=== PATIENT | female | born 1940 | race Caucasian/White ===

== ENCOUNTER 2016-07-09 14:47 | Inpatient (IN) | payer OTHER ==
[~2016-07-09] VITALS: Ht 152.4 cm; Wt 67.1 kg
[~2016-07-09 14:47] MED LIST: ATORVASTATIN CA40 M1 PO; AZITHROMYCIN500 M3 PO; CALCIUM600 M2 PO; HUMALOG KW100 UNIT/1; HYDROCODON-ACE1 EAC2 PO; IPRAT-ALBUT 0.5-3 ML PO; LANTUS SOL100 UNIT/1 SC; LISINOPRIL20 M1 PO; LYRICA75 M1 PO; METFORMIN HCL1000 M1 PO; METFORMIN HCL500 M3 PO; ONGLYZA5 M1 PO; PREDNISONE10 M2 PO; SUPER CALCIUM600 MG PO; VENLAFAXINE H37.5 M3 PO; VOLTAREN100 GM TOP
--- NOTE | 2016-07-09 15:16 | ED PSYCHIATRIC COMPLAINT ---
History of Present Illness General Chief Complaint: Psychiatric Related Complaint Stated Complaint: +SI Source: patient Exam Limitations: no limitations Vital Signs & Intake/Output Vital Signs & Intake/Output Vital Signs Date Time Temp Pulse Resp B/P Pulse O2 O2 Flow FiO2 Ox Delivery Rate 07/16 812 96.4 100 139/76 07/16 0804 97.1 78 18 126/51 07/15 1951 97.1 78 126/51 07/15 1633 76 135/53 07/15 1220 76 136/44 Allergies Coded Allergies: aspirin (HX OF HEMORRAGE 12/25/15) Reconcile Medications Albuterol Sulfate (Proair Hfa) 90 MCG HFA.AER.AD 2 PUF INH 4 TIMES/DAY RESPIRATORY (Reported) Atorvastatin Calcium (Unknown Strength) TABLET (Unknown Dose) PO DAILY CHOLESTEROL (Reported) Calcium Carbonate/Vitamin D3 (Caltrate 600 + D Tablet) (Unknown Strength) TABLET (Unknown Dose) PO DAILY SUPPLEMENT (Reported) Diclofenac Sodium (Voltaren) 100 GM GEL..GRAM. 1 GM TOP 4 TIMES/DAY AFFECTED AREA (Reported) apply to affected area(s) Hydrocodone/Acetaminophen (Hydrocodon-Acetaminophen 5-325) 1 EACH TABLET 1 TAB PO BID PAIN (Reported) Insulin Lispro (Humalog Kwikpen U-100) 100 UNIT/ML INSULN.PEN DM (Reported) Insulin-Lantus (Lantus) 100 UNIT/ML VIAL 50 UNITS SC QAM DM (Reported) Insulin-Lantus (Lantus) 100 UNIT/ML VIAL 65 UNITS SC QPM DM (Reported) Lisinopril 20 MG TABLET 1 TAB PO DAILY HEART (Reported) Metformin HCl (Glucophage) 1,000 MG TABLET 1,000 MG PO BID DIABETES (Reported ) Pregabalin (Lyrica) 100 MG CAPSULE 1 CAP PO BID UNKNOWN (Reported) Saxagliptin (Onglyza) 5 MG TABLET 1 TAB PO DAILY DIABETES (Reported) Tiotropium [place] (Spiriva) 18 MCG CAP.W.DEV 1 CAP INH DAILY RESPIRATORY ( Reported) Venlafaxine HCl 37.5 MG TABLET 1 TAB PO BID MENTAL HEALTH (Reported) Triage Note: PT BIBA FROM HOME AFTER HER DAUGHTER CALLED 911 DUE TO POSSIBLE SUCIDE ATTEMPT. PT LEFT A NOTE STATING "I HAVE A BROKEN HEART, I'M GOING TO LEAVE WITH IT" PT TOLD MULTIPLE NEIGHBORS THAT SHE TRIED TO HANG HERSELF WITH HER SHOWER CURTAIN, BUT IT BROKE. NEIGHBORS TOLD DAUGHTER ABOUT INCIDENT. EMS STATES DAUGHTER AND PT DO NOT HAVE A STRONG RELATIONSHIP. PT HAS A HX OF DM AND HAS NOT BEEN TAKING CARE OF HERSELF, BS ON [address]. PT IS ALERT AND ORIENTED, SLOW TO GIVE ANY INFO, STATING SHE DOES NOT WANT TO BE HERE. POLICE STATE THEY SAW A BROKEN SHOWER CURTAIN. PT HAS MODERATE HAND TREMORS, PT WILL NOT CONFIRM IF THAT IS AT HER BASELINE. Triage Nurses Notes Reviewed? yes HPI: This patient is a 76-year-old female who presented to the emergency department today brought in by ambulance for evaluation of suicide attempt. PER EMS, the patient's daughter called 911 after the patient left a suicide note. The patient reported that this morning she tried to hang herself from the shower curtain, but reported, "I guess I was too heavy and it broke." The patient reported that she has been feeling very down because her daughter has not talked to her since before . She reported, "I was alone on [place] and felt like I just didn't have anything to live for anymore." The patient denied any previous suicidal ideations or suicide attempts. She denied any alcohol or drug use. The patient denied any homicidal ideation, audio hallucinations, or visual hallucinations. She denied any fevers, chills, chest pain, difficulty breathing, abdominal pain, numbness or tingling, nausea, vomiting, visual changes, or any other associated symptoms. (RENEE CRAIG PA-C) Past History Travel History Traveled to [place] past 21 day No Medical History Any Pertinent Medical History? see below for history Neurological: NONE EENT: NONE Cardiovascular: hypertension, hyperlipidemia Respiratory: COPD Gastrointestinal: NONE Hepatic: NONE Renal: NONE Musculoskeletal: NONE Psychiatric: NONE Endocrine: diabetes Blood Disorders: NONE Cancer(s): NONE Pneumonia Vaccine: 04/22/14 Surgical History Surgical History: brain aneursm Psychosocial History Who do you live with Son Services at Home None What is your primary language [place]ese Family History Family History, If Any: Relation not specified for: *No pertinent family history Hx Contributory? No (RENEE CRAIG PA-C) Review of Systems Review of Systems Constitutional: Reports: no symptoms. EENTM: Reports: no symptoms. Respiratory: Reports: no symptoms. Cardiovascular: Reports: no symptoms. GI: Reports: no symptoms. Genitourinary: Reports: no symptoms. Musculoskeletal: Reports: no symptoms. Skin: Reports: no symptoms. Neurological/Psychological: Reports: see HPI. All Other Systems: Reviewed and Negative (RENEE CRAIG PA-C) Physical Exam Physical Exam General Appearance: well developed/nourished, alert, awake Neurological/Psychiatric: no motor/sensory deficits, awake, alert, calm, nurse administrator II- XII nml as tested, depressed affect, oriented x 3 Comments: Well-developed well-nourished person in no acute distress HEENT: Normal EENT exam, head normocephalic, moist mucous membranes PERRLA bilaterally Back: Normal gait Cardiovascular: Regular rate and rhythm with no murmurs, rubs, or gallops Respiratory: No respiratory distress. Breath sounds clear to auscultation bilaterally Abdomen: Soft, nontender and nondistended Extremity: Normal and equal pulses. Neuro: Alert oriented x3, cranial nerves II through XII grossly intact. Skin: No appreciable rash on exposed skin, skin is warm and dry. Psych: Mood and affect is depressed SAD PERSONS Done? yes (RENEE CRAIG PA-C) Progress Differential Diagnosis: dementia, drug intoxication, drug overdose, drug withdrawal, electrolyte abnormality, encephalitis, IC hem/mass/tumor, ALCOHOL INTOXICATION, ALCOHOL WITHDRAWAL, MAJOR DEPRESSIVE DISORDER, GENERALIZED ANXIETY DISORDER, BIPOLAR DISORDER Plan of Care: Current Medications Sig/Pavan Start time Last Medication Dose Stop Time Status Admin Acetaminophen 650 MG Q6P PRN 07/10 0245 AC (Tylenol) Albuterol Sulfate 2 PUF Q6P PRN 07/10 0130 AC (Ventolin) Comments: 07/09/2016 10:58:37 PM: PATIENT SIGNED OUT TO DR. RUIZ PENDING PSYCH CONSULT. (RENEE CRAIG PA-C) Departure Departure Disposition: STILL A PATIENT Condition: Stable Clinical Impression Primary Impression: Major depressive disorder Qualifiers: Major depression recurrence: single episode Active/Remission status : remission status unspecified Qualified Code: F32.9 - Major depressive disorder , single episode, unspecified Referrals: LILI BAILON,ROXY Neri (PCP/Family) Referred to [facility] as new patient No Departure Forms: Customer Survey General Discharge Information Psych Admission Note Psychiatric Admission: I have seen and evaluated REAL CROSS. I have also reviewed all the pertinent lab results and diagnostic results. REAL CROSS will be admitted to our inpatient Psychiatric unit for treatment and care. (RAFA RODGERS,RENEE) PA/FAMILY MEDICINE PHYSICIAN Co-Sign Statement Statement: ED Attending supervision documentation- x I saw and evaluated the patient. I have also reviewed all the pertinent lab results and diagnostic results. I agree with the findings and the plan of care as documented in the PA's/FAMILY MEDICINE PHYSICIAN's documentation. [] I have reviewed the ED Record and agree with the PA's/FAMILY MEDICINE PHYSICIAN's documentation. [] Additions or exceptions (if any) to the PAs/FAMILY MEDICINE PHYSICIAN's note and plan are summarized below: [] (JOSEPH BAILON,DL) (Tylenol) Albuterol Sulfate 2 PUF Q6P PRN 07/10 0130 AC (Ventolin) Comments: 07/09/2016 10:58:37 PM: PATIENT SIGNED OUT TO DR. RUIZ PENDING PSYCH CONSULT. Departure Departure Disposition: STILL A PATIENT Condition: Stable Clinical Impression Primary Impression: Major depressive disorder Qualifiers: Major depression recurrence: single episode Active/Remission status : remission status unspecified Qualified Code: F32.9 - Major depressive disorder , single episode, unspecified Referrals: ROXY PEARSON MD (PCP/Family) Referred to [facility] as new patient No Departure Forms: Customer Survey General Discharge Information Psych Admission Note Psychiatric Admission: I have seen and evaluated REAL CROSS. I have also reviewed all the pertinent lab results and diagnostic results. REAL CROSS will be admitted to our inpatient Psychiatric unit for treatment and care. Departure Departure Condition: Stable Referrals: ROXY PEARSON MD (PCP/Family) Departure Forms: Customer Survey General Discharge Information
[2016-07-09 16:08] LABS: ABSOLUTE BASOPHIL COUNT 0.2 /CUMM (0.0-0.2); ABSOLUTE EOSINOPHIL COUNT 0.1 /CUMM (0.0-0.7); ABSOLUTE LYMPH COUNT 2.2 /CUMM (1.2-3.4); ABSOLUTE MONOCYTE COUNT 0.5 /CUMM (0.10-0.60); BASOPHIL % 1.7 % (0.0-2.0); EOSINOPHIL % 0.8 % (0-5); HEMATOCRIT 40.9 % (37-47); MEAN CORPUSCULAR HGB 31.3 PG (27.0-31.0); MEAN CORPUSCULAR HGB CONC 34.1 G/DL (33.0-37.0); MEAN CORPUSCULAR VOLUME 91.7 FL (81.0-99.0); MEAN PLATELET VOLUME 7.3 FL (7.4-10.4); PLATELET COUNT 239 /CUMM (130-400); RBC DISTRIBUTION WIDTH 13.9 % (11.5-14.5); RED BLOOD CELL CT 4.46 /CUMM (4.20-5.40)
[2016-07-09] MEDS ORDERED: LANTUS100 UNIT/1 SC ×2 (17:42→17:43)
[2016-07-09] MEDS ORDERED: HUMALOG KW100 UNIT/1 SC (17:48)
[2016-07-09] MEDS ORDERED: CALTRATE 600 +1 EACH PO (17:51)
[2016-07-09] MEDS ORDERED: PROAIR HFA8.5 GM INH (17:54)
[2016-07-09] MEDS ORDERED: SPIRIVA18 MCG INH (17:55)
[2016-07-09] MEDS ORDERED: LYRICA100 M1 PO (17:57)
--- NOTE | 2016-07-09 21:27 | ED PSY CRISIS COLLATERAL NOTE ---
Collateral Note Collateral Note Family/Inform/Danielle Contacts: This clinician spoke with daughter Suzanne Davalos who reported no contact with her mother since October of 2015. She reports receiving a call from a worker at her mother building who reported her mother attempted suicide by trying to hang herself from bathroom shower curtain. She called 911 and mother [id number].
--- NOTE | 2016-07-09 22:02 | ED PSYCH CRISIS CONSULTATION ---
Crisis Consult Basic Assessment Date of Consult: 07/09/16 Responsible Person/Accompanied By: self Insurance Authorization: Insurance #1: Insurance name: MED[employer] HMO Phone number: Policy number: [id number] Group number: [id number] Authorization number: ED Provider: Patient's ED Provider: RENEE CRAIG PA-C Primary Care Physician: Patient's PCP: LILI BAILON,ROXY Neri PCP's Phone Number: Current Psychiatrist: Dr. Yuri Rutherford Chief Complaint: Psychiatric Related Complaint Patient's Quote: " I want to go home" Present Illness: Pt is a 76 year old female BIBA after a worker in her senior housing visted her in found she attempted suicide by trying to hang herself in the bathroom shower curtain. Pt wrote a suicide note in the bathroom. She reports getting depressed because her daaughter has not called since October of 2015 and having no place to spend Xmas. She reports having (2) sons currently homeless and her son borrowed had her car in the summer and would not pick her up from the hospital. Pt reports asking her son to leave and appears to have limited support with loss of relationship with her (2) sons and (1) daughter. She reports getting depressed after calling her daughter numerous times with no return call from daughter. Pt denies any substance use and reports being treated in the past for depression after the loss of her with Zoloft. Patient's Address: [address] [place] [address] Other Phone Number: Who Do You Live With? Patient/Self Family/Informants Interviewed: Mary Davalos [phone] Allergies - Coded Allergies: aspirin (HX OF HEMORRAGE 12/25/15) Current Medications - Scheduled Medications Albuterol Sulfate (Proair Hfa) 90 MCG HFA.AER.AD 2 PUF INH 4 TIMES/DAY RESPIRATORY (Reported) Entered as Reported by LUCINDA HELTON on 07/09/16 1754 Atorvastatin Calcium (Unknown Strength) TABLET (Unknown Dose) PO DAILY CHOLESTEROL #30 (Reported) Entered as Reported by NGUYEN ALEMAN on 12/25/15 1452 Last Taken: Unknown Dose Calcium Carbonate/Vitamin D3 (Caltrate 600 + D Tablet) (Unknown Strength) TABLET (Unknown Dose) PO DAILY SUPPLEMENT (Reported) Entered as Reported by LUCINDA HELTON on 07/09/16 175 Diclofenac Sodium (Voltaren) 100 GM GEL..GRAM. 1 GM TOP 4 TIMES/DAY AFFECTED AREA #400 (Reported) Entered as Reported by NGUYEN ALEMAN on 12/25/15 1454 Hydrocodone/Acetaminophen (Hydrocodon-Acetaminophen 5-325) 1 EACH TABLET 1 TAB PO BID PAIN (Reported) Entered as Reported by NGUYEN ALEMAN on 12/25/15 145 Insulin-Lantus (Lantus) 100 UNIT/ML VIAL 50 UNITS SC QAM DM (Reported) Entered as Reported by LUCINDA HELTON on 07/09/16 174 Insulin-Lantus (Lantus) 100 UNIT/ML VIAL 65 UNITS SC QPM DM (Reported) Entered as Reported by LUCINDA HELTON on 07/09/16 174 Lisinopril 20 MG TABLET 1 TAB PO DAILY HEART #30 (Reported) Entered as Reported by NGUYEN ALEMAN on 12/25/15 1451 Metformin HCl 1,000 MG TABLET 1 TAB PO BID diabetes mellitus 30 Days Prescribed by VIET DENNY on 12/29/15 Pregabalin (Lyrica) 100 MG CAPSULE 1 CAP PO BID UNKNOWN #180 (Reported) Entered as Reported by LUCINDA HELTON on 07/09/16 175 Saxagliptin (Onglyza) 5 MG TABLET 1 TAB PO DAILY DIABETES #30 (Reported) Entered as Reported by NGUYEN ALEMAN on 12/25/15 1450 Tiotropium [place] (Spiriva) 18 MCG CAP.W.DEV 1 CAP INH DAILY RESPIRATORY ( Reported) Entered as Reported by LUCINDA HELTON on 07/09/16 175 Venlafaxine HCl 37.5 MG TABLET 1 TAB PO BID MENTAL HEALTH #60 (Reported) Entered as Reported by NGUYEN ALEMAN on 12/25/15 145 Miscellaneous Medications Insulin Lispro (Humalog Kwikpen U-100) 100 UNIT/ML INSULN.PEN DM (Reported) Entered as Reported by LUCINDA HELTON on 07/09/16 174 Laboratory Results: Laboratory Tests 07/09/16 1556: Anion Gap 10, Estimated GFR > 60, BUN/Creatinine Ratio 23.3, Glucose 324 H, Calcium 8.9, Total Bilirubin 0.3, AST 17, ALT 25, Alkaline Phosphatase 88, Total Protein 6.1 L, Albumin 3.5, Globulin 2.6, Albumin/Globulin Ratio 1.3, CBC w Diff NO MAN DIFF REQ, RBC 4.46, MCV 91.7, MCH 31.3 H, RDW 13.9, MPV 7.3 L, Gran % 70.0, Lymphocytes % 22.1, Monocytes % 5.4, Eosinophils % 0.8, Basophils % 1.7, Absolute Granulocytes 7.0 H, Absolute Lymphocytes 2.2, Absolute Monocytes 0.5, Absolute Eosinophils 0.1, Absolute Basophils 0.2, PUBS MCHC 34.1, Serum Alcohol < 10.0, Acetone Level NEGATIVE 07/09/16 1537: Urine Opiates Screen < 100.00, Methadone Screen < 40, Barbiturate Screen < 60, Ur Phencyclidine Scrn < 6.00, Amphetamines Screen < 100, U Benzodiazepines Scrn < 85, Urine Cocaine Screen < 50, Urine Cannabis Screen < 5.00 07/09/16 1516: Acetone Level Cancelled Past History Past Medical History Neurological: NONE EENT: NONE Cardiovascular: hypertension, hyperlipidemia Respiratory: COPD Gastrointestinal: NONE Hepatic: NONE Renal: NONE Musculoskeletal: NONE Psychiatric: NONE, depression Endocrine: diabetes Blood Disorders: NONE Cancer(s): NONE Past Surgical History Surgical History: brain aneursm Psychosocial History Strengths/Capabilities: Supportive friend. Psychiatric Treatment History Psych Treatment Psychiatric Treatment Yes Inpatient Treatment No Outpatient Treatment Yes Location of Treatment Primary Care physician after the loss of . Reason for Treatment Depression Dates of Treatment unknown Response to Treatment unknown Diagnosis by History: unknown Substance Use/Abuse History Drug Use/Abuse Substances Used/Abused No Substance Abuse Treatment Substance Abuse Treatment Past Substance Abuse [place] No Outpatient Treatment No Comments: Pt has a histordy of depression. Current Mental Status Mental Status Orientation: Person, Place, Situation Affect: Depressed Speech: WNL Neuro-vegetative: Appetite Decreased Appearance Appearance- Dress/Hygiene: Dressed in hospital clothing. Behaviors Thought Process: WNL Thought Content: WNL Memory: WNL Insight: Poor SI/HI Risk Assessment Past Suicidal Ideation/Attempts Yes Current Suicidal Ideation/Att Yes Past Homicidal Ideation/Att: No Current Homicidal Ideation/Attempts No Degree of Intent: Made Preparations, Plan, States Intent Danger To: Self Gravely Disabled: Lack of Insight, Poor Impulse Control, Poor Judgment Risk Factors: age (under 24/over 65), isolate/no social support, poor impulse control, lives alone, limited support Lethality Ratin PTSD Checklist PTSD Score: PTSD Score: Response Value Disturbing memories,thoughts,images of stressful experience? Not at all 1 Disturbing dreams of stressful experience from past? Not at all 1 Suddenly acting/feeling as if reliving stressful experience? Not at all 1 Total 3 PTSD Done? 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 Hx of Depression. Departure Disposition Psych Medical Clearance Date: 07/09/16 Medically Cleared at: 2029 Time Started: 2029 Time Ended: 2129 Psychiatrist Consulted: Dr. Yuri Rutherford Date Disposition Established: 07/09/16 Time Disposition Established: 2129 Plan for Disposition - Modality: Inpatient Psychiatry Facility: [facility] Follow-up Appt Date: 07/09/16 Contact: MILTON Lopez Rationale for Disposition: Pt presnets to the ER BIBA after attempted suicide by trying to hang herself in the bathroom broke the shower curtain, depressed and hopeless. Type of IP Admission: PEC Referrals LILI BAILON,ROXY Neri (PCP/Family)
[2016-07-10 01:19] VITALS: BP 152/68
[2016-07-10] MEDS ORDERED: GLUCOPHAGE1000 M1 PO (07:34)
[2016-07-10 08:12] VITALS: BP 150/61
[2016-07-10 12:24] VITALS: BP 135/58
--- NOTE | 2016-07-10 13:06 | SOCIAL WORKER TX PLAN PSYCH ---
Treatment Plan - Please Document: - Evidence that there is ongoing collaboration between - the patient and the interdisciplinary team, - including the patient's active participation and - responsibility for engaging in the treatment regimen, - and that the treatment plan is individualized and - relevant to the patient's conditions. - Treatment plan should reflect documentation indicating - that all active therapeutic efforts are included. Strengths/Capabilities: Supportive friend. Patient Identified Trmt Goals: " To do better for myself." Discharge Plan: IOP Problem/Goals #1 Problem #1: suicidal ideation Goal (Short Term): Today I will attend 2 groups Today I will identify 2 stressors Today I will identify 2 positive supports Today I will work on recognizing 3 emotions I am feeling Goal (Usp): Be free of suicidal thoughts/attempts Develop 3 coping skills to deal with depression Identify 3 positive support systems to call in crisis Develop a crisis plan with 3 vela people Identify 2 positive traits per week about myself Identify 2 things I have to look forward to Identify 2 positive people in my life and 1 thing I appreciate about them Interventions: Learn ways to manage depressive symptoms accordingly and identify positive supports to manage life stressors and mood fluctuations. Modalities: Encourage groups, education on depression, provide CBT treatment, family meeting. 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
--- NOTE | 2016-07-10 13:06 | SOCIAL WORKER SOCIAL HX PSYCH ---
Social History Basic Assessment Primary Care Physician: Patient's PCP: ROXY PEARSON MD PCP's Phone Number: Present Problem: Pt is a 76 year old female BIBA after a worker in her senior housing visted her in found she attempted suicide by trying to hang herself in the bathroom shower curtain. Pt wrote a suicide note in the bathroom. She reports getting depressed because her daaughter has not called since October of 2015 and having no place to spend Xmas. She reports having (2) sons currently homeless and her son borrowed had her car in the summer and would not pick her up from the hospital. Pt reports asking her son to leave and appears to have limited support with loss of relationship with her (2) sons and (1) daughter. She reports getting depressed after calling her daughter numerous times with no return call from daughter. Pt denies any substance use and reports being treated in the past for depression after the loss of her with Zoloft. Primary Language? Tajik Living Situation Other Living Arrangement: [facility] Residential Care/Treatment Fac residential Feel Safe Where You Are Living Yes Feel Safe in Relationships? Yes Allergies - Coded Allergies: aspirin (HX OF HEMORRAGE 12/25/15) Current Medications - Scheduled Medications Albuterol Sulfate (Proair Hfa) 90 MCG HFA.AER.AD 2 PUF INH 4 TIMES/DAY RESPIRATORY (Reported) Entered as Reported by LUCINDA HELTON on 07/09/161753 Last Taken: 07/08/16 Atorvastatin Calcium (Unknown Strength) TABLET (Unknown Dose) PO DAILY CHOLESTEROL #30 (Reported) Entered as Reported by NGUYEN ALEMAN on 12/25/151451 Last Taken: 80MG on 07/08/16 Calcium Carbonate/Vitamin D3 (Caltrate 600 + D Tablet) (Unknown Strength) TABLET (Unknown Dose) PO DAILY SUPPLEMENT (Reported) Entered as Reported by LUCINDA HELTON on 07/09/161750 Last Taken: 07/08/16 Diclofenac Sodium (Voltaren) 100 GM GEL..GRAM. 1 GM TOP 4 TIMES/DAY AFFECTED AREA #400 (Reported) Entered as Reported by NGUYEN ALEMAN on 12/25/151453 Last Taken: 07/08/16 Hydrocodone/Acetaminophen (Hydrocodon-Acetaminophen 5-325) 1 EACH TABLET 1 TAB PO BID PAIN (Reported) Entered as Reported by NGUYEN ALEMAN on 12/25/15 145 Last Taken: 07/08/16 Insulin-Lantus (Lantus) 100 UNIT/ML VIAL 50 UNITS SC QAM DM (Reported) Entered as Reported by LUCINDA HELTON on 07/09/161741 Last Taken: 07/09/16 Insulin-Lantus (Lantus) 100 UNIT/ML VIAL 65 UNITS SC QPM DM (Reported) Entered as Reported by LUCINDA HELTON on 07/09/161742 Last Taken: 07/08/16 Lisinopril 20 MG TABLET 1 TAB PO DAILY HEART #30 (Reported) Entered as Reported by NGUYEN ALEMAN on 12/25/15 145 Last Taken: 07/08/16 Metformin HCl (Glucophage) 1,000 MG TABLET 1,000 MG PO BID DIABETES (Reported ) Entered as Reported by JAYLA HUMPHRIES on 07/10/16 0734 Pregabalin (Lyrica) 100 MG CAPSULE 1 CAP PO BID UNKNOWN #180 (Reported) Entered as Reported by LUCINDA HELTON on 07/09/161756 Last Taken: 07/08/16 Saxagliptin (Onglyza) 5 MG TABLET 1 TAB PO DAILY DIABETES #30 (Reported) Entered as Reported by NGUYEN ALEMAN on 12/25/15 1450 Tiotropium [place] (Spiriva) 18 MCG CAP.W.DEV 1 CAP INH DAILY RESPIRATORY ( Reported) Entered as Reported by LUCINDA HELTON on 07/09/161754 Last Taken: 07/08/16 Venlafaxine HCl 37.5 MG TABLET 1 TAB PO BID MENTAL HEALTH #60 (Reported) Entered as Reported by NGUYEN ALEMAN on 12/25/15 145 Miscellaneous Medications Insulin Lispro (Humalog Kwikpen U-100) 100 UNIT/ML INSULN.PEN DM (Reported) Entered as Reported by LUCINDA HELTON on 07/09/161747 Last Taken: 07/08/16 Past History Past Medical History Neurological: BRAIN ANERUSYM DISSECTED EENT: NONE Cardiovascular: hypertension, hyperlipidemia Respiratory: COPD Gastrointestinal: NONE Hepatic: NONE Renal: NONE Musculoskeletal: NONE Psychiatric: NONE, depression Endocrine: diabetes Blood Disorders: NONE Cancer(s): NONE Past Surgical History Surgical History: brain aneursm /Family History Place/Country of Origin: unable to answer Childhood Family Constellation: parents Primary Childhood Caretakers: father, mother Family Life During Childhood: unclear DCF Involvement? No Mother's Age (Current/): 0 Relationship w/Mother: Father's Age (Current/): 0 Relationship w/Father: Relationship w/Sibling(s): unknown Relationship w/Friends: Has some friends in her residence. Number of Pregnancies: 3 Number of Miscarriages: 0 Number of Abortions: 0 Abuse/Trauma History Trauma History/Current Trauma: Denies Legal History Current Legal Status: none Hx of Juvenile Legal Charges? No Hx of Adult Legal Charges? No Psychosocial History Primary Support System: None identified Strengths/Capabilities: Supportive friend. Weaknesses: Poor relationship with family members Last Physical: unknown History of Seizures? No History of Blackouts? No [place]/Social/Peer Relations Has some friends in building, tends to keep to herself. Psychiatric Treatment History Psych Treatment Inpatient Treatment No Outpatient Treatment Yes Location of Treatment Primary Care physician after the loss of . Reason for Treatment Depression Dates of Treatment unknown Response to Treatment unknown Diagnosis: unknown Risk Factors: age (under 24/over 65), isolate/no social support, poor impulse control, lives alone, limited support Substance Use/Abuse History Drug Use/Abuse Substance Used/Abused No History Substance Abuse Treatment Substance Abuse Treatment Outpatient Treatment No Education History Highest Level of Education: not sure Employment History Employment Retired History Have You Been in The ? No Current Mental Status Mental Status Orientation: Person, Place, Situation Affect: Depressed Speech: WNL Neuro-vegetative: Appetite Decreased Appearance Appearance- Dress/Hygiene: Dressed in hospital clothing. Behaviors Thought Process: WNL Thought Content: WNL Memory: WNL Insight: Poor SI/HI Risk Assessment Past Suicidal Ideation/Attempts Yes Current Suicidal Ideation/Att Yes Past Homicidal Ideation/Att: No Current Homicidal Ideation/Attempts No Degree of Intent: Made Preparations, Plan, States Intent Danger To: Self Gravely Disabled: Lack of Insight, Poor Impulse Control, Poor Judgment Lethality Ratin - Conclusion and Recommendations for treatment - and discharge planning
--- NOTE | 2016-07-10 14:33 | History & Physical ---
General Information and HPI MD Statement: I have seen and personally examined REAL CROSS and documented this H&P. The patient is a 76 year old F who presented with a patient stated chief complaint of "I have a broken heart" "I to go home". Source of Information: patient, family Exam Limitations: no limitations History of Present Illness: 76-year-old female that in by ambulance to the [facility] emergency room after attempting suicide by trying to hang self from the bathroom curtain that was too heavy and broke has been depressed hopeless with history of depression or depressed around the holidays [place] and all started after the loss of her and the lack of contact with her children Allergies/Medications Allergies: Coded Allergies: aspirin (HX OF HEMORRAGE 12/25/15) Home Med list Albuterol Sulfate (Proair Hfa) 90 MCG HFA.AER.AD 2 PUF INH 4 TIMES/DAY RESPIRATORY (Reported) Atorvastatin Calcium (Unknown Strength) TABLET (Unknown Dose) PO DAILY CHOLESTEROL (Reported) Calcium Carbonate/Vitamin D3 (Caltrate 600 + D Tablet) (Unknown Strength) TABLET (Unknown Dose) PO DAILY SUPPLEMENT (Reported) Diclofenac Sodium (Voltaren) 100 GM GEL..GRAM. 1 GM TOP 4 TIMES/DAY AFFECTED AREA (Reported) apply to affected area(s) Hydrocodone/Acetaminophen (Hydrocodon-Acetaminophen 5-325) 1 EACH TABLET 1 TAB PO BID PAIN (Reported) Insulin Lispro (Humalog Kwikpen U-100) 100 UNIT/ML INSULN.PEN DM (Reported) Insulin-Lantus (Lantus) 100 UNIT/ML VIAL 50 UNITS SC QAM DM (Reported) Insulin-Lantus (Lantus) 100 UNIT/ML VIAL 65 UNITS SC QPM DM (Reported) Lisinopril 20 MG TABLET 1 TAB PO DAILY HEART (Reported) Metformin HCl (Glucophage) 1,000 MG TABLET 1,000 MG PO BID DIABETES (Reported ) Pregabalin (Lyrica) 100 MG CAPSULE 1 CAP PO BID UNKNOWN (Reported) Saxagliptin (Onglyza) 5 MG TABLET 1 TAB PO DAILY DIABETES (Reported) Tiotropium [place] (Spiriva) 18 MCG CAP.W.DEV 1 CAP INH DAILY RESPIRATORY ( Reported) Venlafaxine HCl 37.5 MG TABLET 1 TAB PO BID MENTAL HEALTH (Reported) Compliance With Home Meds: UNKNOWN Past History Travel History Traveled to [place] past 21 day No Medical History Neurological: BRAIN ANERUSYM DISSECTED EENT: NONE Cardiovascular: hypertension, hyperlipidemia Respiratory: COPD Gastrointestinal: NONE Hepatic: NONE Renal: NONE Musculoskeletal: NONE Psychiatric: NONE, depression Endocrine: diabetes Blood Disorders: NONE Cancer(s): NONE History of MRSA: No History of VRE: No History of CDIFF: No Isolation History: Standard Pneumonia Vaccine: 04/22/14 Influenza Vaccine: 04/13/16 Surgical History Surgical History: brain aneursm Past Family/Social History Family History Relations & Conditions if any Relation not specified for: *No pertinent family history Psychosocial History Where do you live? Home Who Do You Live With? self Services at Home: None ETOH Use: 6 Illicit Drug Use: UTD Functional Ability ADLs Independent: dressing, eating, toileting, bathing. Ambulation: independent Review of Systems Review of Systems Constitutional: Reports: see HPI. Exam & Diagnostic Data Last 24 Hrs of Vital Signs/I&O Vital Signs Date Time Temp Pulse Resp B/P Pulse O2 O2 Flow FiO2 Ox Delivery Rate 07/10 1224 71 135/58 07/10 1207 Room Air 07/10 0823 74 150/61 07/10 0812 97.5 74 150/61 07/10 0119 96.4 67 152/68 07/09 2313 99 Room Air 07/09 2122 96.2 73 18 145/83 94 Room Air 07/09 1658 96.4 72 16 138/63 93 Room Air Intake & Output 07/10 1600 07/10 0800 07/10 0000 Intake Total 1000 Output Total Balance 1000 Intake, IV 1000 Patient 148 lb Weight Physical Exam General Appearance Alert, Oriented X3, Cooperative, No Acute Distress Skin No Rashes HEENT PERRLA, EOMI Neck Supple, No JVD, No thryomegaly Lymphatic Axillary nl, Cervical nl Cardiovascular Regular Rate Lungs decreased breath sounds Abdomen Soft, No Tenderness, No Hepatospenomegaly Neurological nonfocal Extremities No Cyanosis, No Edema Last 24 Hrs of Labs/Jose: Laboratory Tests 07/09/16 1556: Anion Gap 10, Estimated GFR > 60, BUN/Creatinine Ratio 23.3, Glucose 324 H, Calcium 8.9, Total Bilirubin 0.3, AST 17, ALT 25, Alkaline Phosphatase 88, Total Protein 6.1 L, Albumin 3.5, Globulin 2.6, Albumin/Globulin Ratio 1.3, CBC w Diff NO MAN DIFF REQ, RBC 4.46, MCV 91.7, MCH 31.3 H, RDW 13.9, MPV 7.3 L, Gran % 70.0, Lymphocytes % 22.1, Monocytes % 5.4, Eosinophils % 0.8, Basophils % 1.7, Absolute Granulocytes 7.0 H, Absolute Lymphocytes 2.2, Absolute Monocytes 0.5, Absolute Eosinophils 0.1, Absolute Basophils 0.2, PUBS MCHC 34.1, Serum Alcohol < 10.0, Acetone Level NEGATIVE 07/09/16 1537: Urine Opiates Screen < 100.00, Methadone Screen < 40, Barbiturate Screen < 60, Ur Phencyclidine Scrn < 6.00, Amphetamines Screen < 100, U Benzodiazepines Scrn < 85, Urine Cocaine Screen < 50, Urine Cannabis Screen < 5.00 07/09/16 1516: Acetone Level Cancelled Diagnostic Data ITS Data Unobtainable at this time Assessment/Plan As Ranked By This Provider Problem List: 1. Depressed 2. Suicidal intent 3. Diabetes Core Measures/Miscellaneous Acute Coronary Syndrome ACS Diagnosis: No Cerebrovascular Accident CVA/TIA Diagnosis: No Congestive Heart Failure CHF Diagnosis: No Venous Thromboembolism VTE Risk Factors: No Risk Factors VTE Prophylaxis Ordered Inpt: Early [facility]ulation [facility] prophylaxis d/t: No contraindications No VTE Pharm Prophylaxis d/t: No contraindications VTE Diagnosis: No VTE Type: NONE VTE Confirmed by (Test): NONE Severe Sepsis Severe Sepsis Present: No Septic Shock Septic Shock Present: No Miscellaneous Documentation Attending Case Discussed With: MALCOLM HECK MD Primary Care Physician: ROXY PEARSON MD Patient sees these Specialists Psychiatry Level of Patient Care: [facility] Consults Needed: Consulting Specialty: Psychiatry Consulting Physician: Dr Heck Reason for Consult: depression and suicidal attempt
--- NOTE | 2016-07-10 14:51 | Cons- Endocrinology ---
General Information and HPI Consulting Request Date of Consult: 07/10/16 Requested By: Psych team Reason for Consult: management of DM type 2 Source of Information: patient, old records Exam Limitations: no limitations History of Present Illness: 76 y/o female, hx of DM type 2, dyslipidemia and depression, was admitted for suicidal ideation. I was asked to see her for management of DM. At home, she was on Levemir 50 units am and 65 units at bedtime, metformin 1000 mg twice a day, Onglyza 5 mg daily and Humalog before meal accordingly to the scale. Her glucose level was 324 yesterday and She received levemir 30 units. Her FSG this morning was 164. She wasn't able to eat breakfast because she couldn't wear her denture without special cream. Her FSG before lunch was 142. Allergies/Medications Allergies: Coded Allergies: aspirin (HX OF HEMORRAGE 12/25/15) Home Med List: Albuterol Sulfate (Proair Hfa) 90 MCG HFA.AER.AD 2 PUF INH 4 TIMES/DAY RESPIRATORY (Reported) Atorvastatin Calcium (Unknown Strength) TABLET (Unknown Dose) PO DAILY CHOLESTEROL (Reported) Calcium Carbonate/Vitamin D3 (Caltrate 600 + D Tablet) (Unknown Strength) TABLET (Unknown Dose) PO DAILY SUPPLEMENT (Reported) Diclofenac Sodium (Voltaren) 100 GM GEL..GRAM. 1 GM TOP 4 TIMES/DAY AFFECTED AREA (Reported) apply to affected area(s) Hydrocodone/Acetaminophen (Hydrocodon-Acetaminophen 5-325) 1 EACH TABLET 1 TAB PO BID PAIN (Reported) Insulin Lispro (Humalog Kwikpen U-100) 100 UNIT/ML INSULN.PEN DM (Reported) Insulin-Lantus (Lantus) 100 UNIT/ML VIAL 50 UNITS SC QAM DM (Reported) Insulin-Lantus (Lantus) 100 UNIT/ML VIAL 65 UNITS SC QPM DM (Reported) Lisinopril 20 MG TABLET 1 TAB PO DAILY HEART (Reported) Metformin HCl (Glucophage) 1,000 MG TABLET 1,000 MG PO BID DIABETES (Reported ) Pregabalin (Lyrica) 100 MG CAPSULE 1 CAP PO BID UNKNOWN (Reported) Saxagliptin (Onglyza) 5 MG TABLET 1 TAB PO DAILY DIABETES (Reported) Tiotropium [place] (Spiriva) 18 MCG CAP.W.DEV 1 CAP INH DAILY RESPIRATORY ( Reported) Venlafaxine HCl 37.5 MG TABLET 1 TAB PO BID MENTAL HEALTH (Reported) Review of Systems Review of Systems Constitutional: Reports: see HPI. Cardiovascular: Denies: chest pain. Respiratory: Denies: short of breath. GI: Denies: abdominal pain. Neurological/Psychological: Reports: depressed. Hematologic/Endocrine: Denies: polyuria, polydipsia. Past History Travel History Traveled to [place] past 21 day No Medical History Neurological: BRAIN ANERUSYM DISSECTED EENT: NONE Cardiovascular: hypertension, hyperlipidemia Respiratory: COPD Gastrointestinal: NONE Hepatic: NONE Renal: NONE Musculoskeletal: NONE Psychiatric: NONE, depression Endocrine: diabetes Blood Disorders: NONE Cancer(s): NONE Surgical History Surgical History: brain aneursm Family History Relations & Conditions If Any: Relation not specified for: *No pertinent family history Psychosocial History Where Do You Live? Home Who Do You Live With? self Services at Home: None ETOH Use: 6 Illicit Drug Use: UTD Functional Ability ADLs Independent: dressing, eating, toileting, bathing. Ambulation: independent Exam & Diagnostic Data Last 24 Hrs of Vital Signs/I&O Vital Signs Date Time Temp Pulse Resp B/P Pulse O2 O2 Flow FiO2 Ox Delivery Rate 07/10 1224 71 135/58 07/10 1207 Room Air 07/10 0823 74 150/61 07/10 0812 97.5 74 150/61 07/10 0119 96.4 67 152/68 07/09 2313 99 Room Air 07/09 2122 96.2 73 18 145/83 94 Room Air 07/09 1658 96.4 72 16 138/63 93 Room Air Intake & Output 07/10 1600 07/10 0800 07/10 0000 Intake Total 1000 Output Total Balance 1000 Intake, IV 1000 Patient 148 lb Weight Physical Exam General Appearance: no apparent distress Neck: normal inspection Respiratory: normal breath sounds Cardiovascular: regular rate/rhythm Gastrointestinal: soft Extremities: no edema Labs/Jose Results: Laboratory Tests 07/09 07/09 07/09 1556 1537 1516 Chemistry Sodium (137 - 145 mmol/L) 136 L Potassium (3.5 - 5.1 mmol/L) 4.1 Chloride (98 - 107 mmol/L) 102 Carbon Dioxide (22 - 30 mmol/L) 25 Anion Gap (5 - 16) 10 BUN (7 - 17 mg/dL) 14 Creatinine (0.5 - 1.0 mg/dL) 0.6 Estimated GFR (>60 ml/min) > 60 BUN/Creatinine Ratio (7 - 25 %) 23.3 Glucose (65 - 99 mg/dL) 324 H Calcium (8.4 - 10.2 mg/dL) 8.9 Total Bilirubin (0.2 - 1.3 mg/dL) 0.3 AST (14 - 36 U/L) 17 ALT (9 - 52 U/L) 25 Alkaline Phosphatase (<127 U/L) 88 Total Protein (6.3 - 8.2 g/dL) 6.1 L Albumin (3.5 - 5.0 g/dL) 3.5 Globulin (1.9 - 4.2 gm/dL) 2.6 Albumin/Globulin Ratio (1.1 - 2.2 %) 1.3 Hematology CBC w Diff NO MAN DIFF REQ WBC (4.8 - 10.8 /CUMM) 10.0 RBC (4.20 - 5.40 /CUMM) 4.46 Hgb (12.0 - 16.0 G/DL) 14.0 Hct (37 - 47 %) 40.9 MCV (81.0 - 99.0 FL) 91.7 MCH (27.0 - 31.0 PG) 31.3 H RDW (11.5 - 14.5 %) 13.9 Plt Count (130 - 400 /CUMM) 239 MPV (7.4 - 10.4 FL) 7.3 L Gran % (42.2 - 75.2 %) 70.0 Lymphocytes % (20.5 - 51.1 %) 22.1 Monocytes % (1.7 - 9.3 %) 5.4 Eosinophils % (0 - 5 %) 0.8 Basophils % (0.0 - 2.0 %) 1.7 Absolute Granulocytes (1.4 - 6.5 /CUMM) 7.0 H Absolute Lymphocytes (1.2 - 3.4 /CUMM) 2.2 Absolute Monocytes (0.10 - 0.60 /CUMM) 0.5 Absolute Eosinophils (0.0 - 0.7 /CUMM) 0.1 Absolute Basophils (0.0 - 0.2 /CUMM) 0.2 PUBS MCHC (33.0 - 37.0 G/DL) 34.1 Toxicology Urine Opiates Screen (>2000 NG/ML) < 100.00 Methadone Screen (>300 NG/ML) < 40 Barbiturate Screen (>200 NG/ML) < 60 Ur Phencyclidine Scrn (>25 NG/ML) < 6.00 Amphetamines Screen (>1000 NG/ML) < 100 U Benzodiazepines Scrn (>200 NG/ML) < 85 Urine Cocaine Screen (>300 NG/ML) < 50 Urine Cannabis Screen (>50 NG/ML) < 5.00 Serum Alcohol (<10 MG/DL) < 10.0 Acetone Level (NEGATIVE) NEGATIVE Cancelled Assessment/Plan Assessment/Plan 76 y/o female, hx of DM type 2, dyslipidemia and depression, was admitted for suicidal ideation. I was asked to see her for management of DM. DM management: 1. Levemir 30 units daily at bedtime; 2. Novolog coverage before meals and Novolog coverage at bedtime-- detail see the inpatient DM orders; hold Novolog if oatient skips meal. 3. continue metformin 1000 mg twice a day. 4. monitor FSGs. will follow. Inpatient Diabetes Orders Before Each Meal: Bolus Insulin: Novolog < 80 mg/dl: no coverage 80-100 mg/dl: no coverage 101-120 mg/dl: 3 units 121-150 mg/dl: 3 units 151-200 mg/dl: 4 units 201-250 mg/dl: 6 units 251-300 mg/dl: 8 units 301-350 mg/dl: 10 units 351-400 mg/dl: 12 units > 400 mg/dl: 14 units Bedtime: Bolus Insulin: Novolog < 80 mg/dl: no coverage 80-100 mg/dl: no coverage 101-120 mg/dl: no coverage 121-150 mg/dl: no coverage 151-200 mg/dl: no coverage 201-250 mg/dl: 2 units 251-300 mg/dl: 3 units 301-350 mg/dl: 4 units 351-400 mg/dl: 5 units > 400 mg/dl: 6 units Consult Acknowledgment - Thank you for your consult request.
--- NOTE | 2016-07-10 14:58 | SOCIAL WORKER PROG NOTE PSYCH ---
Social Work Progress Note Progress Note SW met with patient for the first time today. Patient found in room resting this afternoon during group time. Patient has been refusing groups and is eager to discharge home. Patient appears to have poor insight into the severity of her attempt. Patient reports "I tired to hang myself but I'm too fat so the pole broke." She describes this very calmly showing very little range of emotion. Patient reports a history of family discord between herself and her three children. She reports no contact with her daughter since before of this year and no contact with her sons since this summer. Patient reports that she spent [place] alone although her nephew called and invited her over. Patient reports residing in a [facility] for the past 11 years. She reports having some close friends in the building but tends to keep to herself. On the building had a dinner for the residents but patient decided not to go and spent the day alone in her apartment. Patient presents with depressed mood and sad affect. She signed TOBY for her daughter, Suzanne, and I called and spoke with Suzanne. Suzanne also reported a tumultuous relationship with her mother and reported that she has many stressors in her own family right now. Her has dementia and she has a daughter in college. She reports that at this time she is not in a position to care for her mother and is not willing to participate in her mothers treatment. At this time she will not be visiting her mother while her mother is here and will not participate in a family meeting. She reports that patient does not have any other family that will be willing to participate as well.
--- NOTE | 2016-07-10 15:10 | CPS MD/APRN INITIAL ASSE PSYCH ---
Psychiatric Admission Chief Of Safety And Protection's Note Reviewed: Yes Patient Seen and Examined: Yes Identifying Information: Pt is a 76 year old female Chief Complaint: "It didn't work, the damn thing broke" (the shower curtain with which she tried to hang herself.) Reaction to Hospitalization: Calm, cooperative and pleasant. History of Present Illness Onset of Illness: Patient began to feel depressed a couple of weeks ago when friends in her card group started talking about [place] plans. They are all going to be spending the holidays with family, and the patient had no one with whom to spend the holiday. Circumstances Leading to Admission: Police were called to the patient's apartment after an unsuccessful attempt to kill herself by hanging herself with her shower curtain. Problem(s) Justifying Need for Admission: Attempted suicide. Past Psychiatric History Past Diagnosis(es)- if any: Depression Past Precipitating Factors- if any: Loneliness - Include inpatient and outpatient treatment Treatment History: Patient has been treated for depression for many years with venlafaxine 37.5 mg by her primary care physician, Dr. Son. Dr. Son called in this afternoon to offer collateral information. Dr. Son left his new office telephone number [phone]. History of Suicide Attempts or Gestures Denies. Substance Abuse History: denies Allergies: Coded Allergies: aspirin (HX OF HEMORRAGE 12/25/15) Home Med List: NovoLog insulin sliding scale. Lantus Effexor 37.5 mg twice daily Voltaren 1% gel, topically 4 times daily. Spiriva 1 puff daily. Albuterol 2 puffs as needed for asthma. Metformin 1000 mg twice daily. Lisinopril 20 mg daily. Vicodin 5/325 mg twice daily. Calcium carbonate 600 mg daily. Atorvastatin 80 mg daily. Lyrica 100 mg twice daily. - Include any medical condition(s) that may - impact the patient's recovery/remission Past History Medical History Neurological: BRAIN ANERUSYM DISSECTED EENT: NONE Cardiovascular: hypertension, hyperlipidemia Respiratory: COPD Gastrointestinal: NONE Hepatic: NONE Renal: NONE Musculoskeletal: NONE Psychiatric: NONE, depression Endocrine: diabetes Blood Disorders: NONE Cancer(s): NONE History of MRSA: No History of VRE: No History of CDIFF: No Isolation History: Standard Pneumonia Vaccine: 04/22/14 Influenza Vaccine: 04/13/16 Surgical History Surgical History: henri filter; tonsillectomy as a child. Psychiatric Family/Social Hx Family History Psychiatric Illness: Brother - paranoid schizophrenia Son - paranoid schizophrenia Substance Use: Two sons had history of drug abuse. Suicides: None Social History Living Situation: Patient lives alone in her own apartment. Significant Relationships (family/friends): Patient has significant relationships with certain friends who live in her apartment building. She has 2 sons with whom she has limited contact. She has a daughter and 18-year-old granddaughter, with whom she also has limited contact , despite their living within walking distance of the patient. Education: Finished 6th grade. Vocation/Occupation: Prior to custodial, the patient was a 20 year employee of [employer]. She worked as a telephone hotel or motel receptionist, and later as a community relations assistant. Legal: None Healthly Behaviors Screening Tobacco Screening Tobacco Use from ED Docu: Current Daily Use Daily Tobacco Use Amount/Type: => 5 Cigarettes daily - If tobacco counseling indicated - the following topics are required. - #1 Recognizing dangerous situations. - #2 Coping Skills. - #3 Basic information about quitting. Status of Tobacco Cessation Counseling: #1, #2 AND #3 Completed Cessation Med Status: Nicotine Patch Ordered Alcohol Screening - ETOH screen POS if BAL >=80 or Audit-C>= M4/F3 Audit-C Score from Diag Assess: 0 Blood Alcohol Level: Laboratory Tests 07/09 1556 Toxicology Serum Alcohol (<10 MG/DL) < 10.0 Alcohol Use Screening Results: Neg per Audit C &/or BAL - If ETOH counseling indicated - the following topics are required. - #1 Express concern about the patient's - drinking at unhealthy levels, include informing - of national norms for moderate drinking: - men <= 14 drinks/week, max 4 drinks/occasion - women <= 7 drinks/week, max 3 drinks/occasion - #2 Providing feedback, including linking alcohol to - negative physical effects (liver injury, hypertension) - negative emotional effects (relationship problems and - depression) - negative occupational consequences (reduced work - performance) - #3 Advising the patient to abstain from alcohol or - to drink below national norms for moderate drinking - (as listed above). Status of ETOH Use Counseling: #1, #2 AND #3 Completed. Metabolic Screening - Screen if on a Neuroleptic Medication - Metabolic screening should include: - Blood Pressure, BMI, Glucose or Hgb A1c, & a - Lipid profile from within the past 365 days. Metabolic Screening ([x]) Not Applicable, patient not on a neuroleptic. OR () Patient on a neuroleptic(s) . Enter below results for Glucose or Hemoglobin A1C, and lipid panel if obtained during the last 365 days. BMI: 28.000 Blood Pressure: 135/58 Laboratory Results (If applicable): Exam and Plan Mental Status Examination Ambulation Status: Ambulates independently with steady gait Appearance: Appropriately groomed and dressed. Attitude towards examiner: Calm and cooperative Psychomotor activity: Within normal limits Behavior: Calm and cooperative Quality of speech: Speech is well articulated, goal directed, average rate, volume and tone. Affect: Sad. Congruent Mood: Sad Suicidal Ideation: Denies at this time, although she endorses having attempted to kill herself prior to arrival. Homicidal Ideation: Denies Hallucinations: Denies Paranoid/Delusional Material: Denies Difficulties with thought organization: Within normal limits Insight: Fair Judgment: Poor Orientation: Alert and oriented to person, place, time, and situation. Cognition: Within normal limits Memory Function: Within normal limits Estimate of intellectual functioning: Average Assets/Strengths Patient Identified Assets/Strengths: "Things have to be done the right way" Impression/Plan Impression and Plan: Depression with a suicidal attempt, as a result of loneliness and discord with her children in the context of this holiday season. - Include all active medical diagnosis that require tx DSM 5 Diagnosis(es): Major depressive disorder - Initial Tx Plan for Active Psych & Medical Conditions Treatment Plan: PLAN: The patient will be monitored on the unit for safety, depression, suicidal ideation. Additional information is needed from collaterals, including friends from her apartment building, and her primary care physician Dr. Son. Anticipate once clinically stable, that the patient will be discharged to home and family and be referred to IOP. - Factors that would help patient function - in a less restrictive setting. Factors: Alleviation of depression and suicidal ideation.
[2016-07-10 15:52] VITALS: BP 132/71
--- NOTE | 2016-07-10 16:16 | IP CRISIS DIAG ASSESS PSYCH ---
Diagnostic Assessment Basic Assessment Insurance Authorization: Insurance #1: Insurance name: [facility] Phone number: Policy number: [id number] Group number: [id number] Authorization number: [id number] Covered 07/09-07/14 Review on 07/16/15 Patient's Quote: " I want to go home" Present Illness: Pt is a 76 year old female BIBA after a worker in her senior housing visted her in found she attempted suicide by trying to hang herself in the bathroom shower curtain. Pt wrote a suicide note in the bathroom. She reports getting depressed because her daaughter has not called since October of 2015 and having no place to spend Xmas. She reports having (2) sons currently homeless and her son borrowed had her car in the summer and would not pick her up from the hospital. Pt reports asking her son to leave and appears to have limited support with loss of relationship with her (2) sons and (1) daughter. She reports getting depressed after calling her daughter numerous times with no return call from daughter. Pt denies any substance use and reports being treated in the past for depression after the loss of her with Zoloft. Patient's Address: [address] [place] [address] [place] [address] Other Phone Number: Who Do You Live With? Patient/Self Primary Language? Syriac Family/Informants Interviewed: Mary Davalos [phone] Allergies - Coded Allergies: aspirin (HX OF HEMORRAGE 12/25/15) Current Medications - Scheduled Medications Albuterol Sulfate (Proair Hfa) 90 MCG HFA.AER.AD 2 PUF INH 4 TIMES/DAY RESPIRATORY (Reported) Entered as Reported by LUCINDA HELTON on 07/09/16 175 Last Taken: 07/08/16 Atorvastatin Calcium (Unknown Strength) TABLET (Unknown Dose) PO DAILY CHOLESTEROL #30 (Reported) Entered as Reported by NGUYEN ALEMAN on 12/25/15 1452 Last Taken: 80MG on 07/08/16 Calcium Carbonate/Vitamin D3 (Caltrate 600 + D Tablet) (Unknown Strength) TABLET (Unknown Dose) PO DAILY SUPPLEMENT (Reported) Entered as Reported by LUCINDA HELTON on 07/09/16 175 Last Taken: 07/08/16 Diclofenac Sodium (Voltaren) 100 GM GEL..GRAM. 1 GM TOP 4 TIMES/DAY AFFECTED AREA #400 (Reported) Entered as Reported by NGUYEN ALEMAN on 12/25/151453 Last Taken: 07/08/16 Hydrocodone/Acetaminophen (Hydrocodon-Acetaminophen 5-325) 1 EACH TABLET 1 TAB PO BID PAIN (Reported) Entered as Reported by NGUYEN ALEMAN on 12/25/15 145 Last Taken: 07/08/16 Insulin-Lantus (Lantus) 100 UNIT/ML VIAL 50 UNITS SC QAM DM (Reported) Entered as Reported by LUCINDA HELTON on 07/09/161741 Last Taken: 07/09/16 Insulin-Lantus (Lantus) 100 UNIT/ML VIAL 65 UNITS SC QPM DM (Reported) Entered as Reported by LUCINDA HELTON on 07/09/161742 Last Taken: 07/08/16 Lisinopril 20 MG TABLET 1 TAB PO DAILY HEART #30 (Reported) Entered as Reported by NGUYEN ALEMAN on 12/25/151450 Last Taken: 07/08/16 Metformin HCl (Glucophage) 1,000 MG TABLET 1,000 MG PO BID DIABETES (Reported ) Entered as Reported by JAYLA HUMPHRIES on 07/10/16 0734 Pregabalin (Lyrica) 100 MG CAPSULE 1 CAP PO BID UNKNOWN #180 (Reported) Entered as Reported by LUCINDA HELTON on 07/09/16 175 Last Taken: 07/08/16 Saxagliptin (Onglyza) 5 MG TABLET 1 TAB PO DAILY DIABETES #30 (Reported) Entered as Reported by NGUYEN ALEMAN on 12/25/15 145 Tiotropium [place] (Spiriva) 18 MCG CAP.W.DEV 1 CAP INH DAILY RESPIRATORY ( Reported) Entered as Reported by LUCINDA HELTON on 07/09/16 175 Last Taken: 07/08/16 Venlafaxine HCl 37.5 MG TABLET 1 TAB PO BID MENTAL HEALTH #60 (Reported) Entered as Reported by NGUYEN ALEMAN on 12/25/151451 Miscellaneous Medications Insulin Lispro (Humalog Kwikpen U-100) 100 UNIT/ML INSULN.PEN DM (Reported) Entered as Reported by LUCINDA HELTON on 07/09/16 3038 Last Taken: 07/08/16 Past History Past Surgical History Surgical History henri filter; tonsillectomy as a child. Abuse/Trauma History Trauma History/Current Trauma: Denies Psychosocial History Strengths/Capabilities: Supportive friend. Psychiatric Treatment History Psych Treatment Psychiatric Treatment Yes Inpatient Treatment No Outpatient Treatment Yes Location of Treatment Primary Care physician after the loss of . Reason for Treatment Depression Dates of Treatment unknown Response to Treatment unknown Diagnosis by History: unknown Risk Factors: age (under 24/over 65), isolate/no social support, poor impulse control, lives alone, limited support Substance Use/Abuse History Drug Use/Abuse minimum 12mo Hx Substances Used/Abused No Substance Abuse Treatment Substance Abuse Treatment Past Substance Abuse [place] No Outpatient Treatment No Current Mental Status Mental Status Orientation: Person, Place, Situation Affect: Depressed Speech: WNL Neuro-vegetative: Appetite Decreased Appearance Appearance- Dress/Hygiene: Dressed in hospital clothing. Behaviors Thought Process: WNL Thought Content: WNL Memory: WNL Insight: Poor SI/HI Risk Assessment - Minimum 6mo History- Past Suicidal Ideation/Attempts Yes Current Suicidal Ideation/Att Yes Past Homicidal Ideation/Att: No Current Homicidal Ideation/Attempts No Degree of Intent: Made Preparations, Plan, States Intent Danger To: Self Gravely Disabled: Lack of Insight, Poor Impulse Control, Poor Judgment Risk Factors: age (under 24/over 65), isolate/no social support, poor impulse control, lives alone, limited support Lethality Ratin Needs/Init TX Plan/Goals: Contract for safety, med review, identify coping skills AUDIT-C Questionnaire: AUDIT-C Questionnaire: Response Value ETOH use in the past year Never 0 # drinks typical/day Doesn't Drink 0 6 or > drinks per occasion Never 0 Total 0 DSM5/PS Stressors/Medical Prob Diagnosis' (DSM 5, Stressors, Medical): Marjor Depressive Disorder F32.9 Current GAF: 22 Comments: Pt BIBA after attempted suicide by trying to hang herself in the bathroom. Hx of Depression.
[2016-07-10 20:04] VITALS: BP 142/59
[2016-07-11 07:55] VITALS: BP 135/71
--- NOTE | 2016-07-11 08:14 | CP SOUTH PROGRESS NOTE PSYCH ---
Psych (Inpt) Progress Note Progress Note Progress Note: I discussed this patient's progress to date, current mental status, treatment process in the context of the treatment plan, and discharge planning with staff/ team in the daily morning inpatient team meeting. I also met with the patient myself in individual session. A total of 15 minutes was spent with the patient with more than 50% spent in counseling and/or coordination of care. SUBJECTIVE: "I'm just worried about my cat." OBJECTIVE: Fingerstick glucose this morning at 0800: 199. Current Medications Sig/[place]avan Start time Last Medication Dose Route Stop Time Status Admin Acetaminophen 650 MG Q6P PRN 07/10 0245 AC PO Acetaminophen/ 1 TAB BID 07/10 1000 AC 07/10 Hydrocodone Bitart PO 223 Albuterol Sulfate 2 PUF Q6P PRN 07/10 0130 AC INH Atorvastatin Calcium 80 MG 1700 07/10 1700 AC 07/10 PO 1729 Calcium 600 MG DAILY 07/10 1000 AC 07/10 PO 0821 Diclofenac Sodium 1 JUANA FOUR TIMES A DAY 07/10 1000 AC 07/10 TOP 1053 Insulin Aspart 0 TIDAC/HS 07/10 1200 AC 07/10 SC 1729 Insulin Aspart 0 TIDAC 07/10 0115 DC 07/10 SC 0825 Insulin Detemir 65 UNITS AT BEDTIME 07/10 2200 DC SC Insulin Detemir 30 UNITS AT BEDTIME 07/10 2200 AC 07/10 SC 2239 Insulin Detemir 50 UNITS DAILY 07/10 1000 DC SC Lisinopril 20 MG DAILY 07/10 1000 AC 07/10 PO 0823 Metformin HCl 1,000 MG 0800,1700 07/10 0800 AC 07/10 PO 1729 Nicotine 14 MG DAILY 07/10 1000 AC 07/10 TOP 0822 Pregabalin 100 MG BID 07/10 1000 AC 07/10 PO 2239 Tiotropium [place] 1 PUF DAILY 07/10 1000 AC 07/10 INH 0823 Venlafaxine HCl 150 MG 0800 07/11 0800 AC PO Venlafaxine HCl 37.5 MG BID 07/10 1000 DC 07/10 PO 2239 Vital Signs Date Time Temp Pulse Resp B/P Pulse O2 O2 Flow FiO2 Ox Delivery Rate 07/11 755 96.6 76 135/71 07/10 2004 96.7 73 142/59 07/10 1552 69 132/71 07/10 1224 71 135/58 07/10 1207 Room Air 07/10 0823 74 150/61 07/10 0812 97.5 74 150/61 ASSESSMENT: Patient offers no complaints this morning, states she slept well. States that she misses her cat, which is being cared for by a neighbor. Tolerating medications well, with no complaint. She reports that although she tried to kill herself by hanging herself with her shower curtain, the shower corwin broke under her weight. She states that she is no longer suicidal "I have too much to do." Patient states that she has not been regularly attending groups here, and I encouraged her to do so. We spoke about attending IOP after discharge, which I encouraged her to do. It appears that the precipitating factor for the patient' s suicidal ideation is loneliness. She is estranged from her children, has no other family with whom she is in contact, and felt alone when her friends and neighbors started planning [place] with their own familes. Depression:0/10; Anxiety:0/10 (with 10 the worst.) Denies suicidal ideation, homicidal ideation, auditory hallucinations, visual hallucinations, paranoid ideation. Patient states and also believes that she will not kill herself. She reports sleeping well at night, denies nightmares. States her appetite is fine. She misses hot coffee. Speech is well articulated, goal-directed, average in rate, volume and tone. The patient understands the risks/benefits/side effects of the medication and is agreeable to continue taking them. PLAN: Start venlafaxine XR 150mg, which the patient agrees to. Encourage participation in community activities. Continue with other current management as patient is improving. Continue to provide support and encouragement.
--- NOTE | 2016-07-11 09:42 | PN- Diabetes ---
Assessment/Plan Assessment: 76 y/o female, hx of DM type 2, dyslipidemia and depression, was admitted for suicidal ideation. I was asked to see her for management of DM. She was put on Levemir 30 units daily, Novolog coverage before meals, metformin 1000 mg twice a day and Novolog coverage at bedtime. Her FSGs were 153, 159, 148 and 199. Plan: DM management: 1. increase Levemir to 36 units daily at bedtime; 2. continue the current Novolog coverage before meals and Novolog coverage at bedtime; 3. continue metformin 1000 mg twice a day. 4. monitor FSGs. will follow. Subjective Subjective: She feels ok. Objective Last 24 Hrs of Vital Signs/I&O Vital Signs Date Time Temp Pulse Resp B/P Pulse O2 O2 Flow FiO2 Ox Delivery Rate 07/11 0809 96.6 76 18 135/71 07/11 0755 96.6 76 135/71 07/10 2004 96.7 73 142/59 07/10 1552 69 132/71 07/10 1224 71 135/58 07/10 1207 Room Air
[2016-07-11 12:24] VITALS: BP 108/49
[2016-07-11 16:04] VITALS: BP 128/46
[2016-07-11 20:29] VITALS: BP 154/65
[2016-07-12 08:39] VITALS: BP 146/73
[2016-07-12 11:58] VITALS: BP 138/58
--- NOTE | 2016-07-12 12:25 | SOCIAL WORKER PROG NOTE PSYCH ---
Social Work Progress Note Progress Note Patient appears to be is a very good mood today, Patient woulsd be extremely happy if we could arrange a family meeting with her daughter. Patient was tearful (almost), when saying that it would be great to see her.Patient stated that she was not suicidal, and that now she stated that she would want to live for spite to children. Patient stated that her sons are no help, and she would not want to have them at meeting as they are in no position. Patient did identify one person at her place of residence who she would want to have at a meeting and that was Ashley Hoffman [phone]. This is not only neighbor who [facility] help, but is main one. Tried dtr., but no answer.
--- NOTE | 2016-07-12 12:41 | CP SOUTH PROGRESS NOTE PSYCH ---
Psych (Inpt) Progress Note Progress Note Progress Note: I discussed this patient's progress to date, current mental status, treatment process in the context of the treatment plan, and discharge planning with staff/ team in the daily morning inpatient team meeting. I also met with the patient myself in individual session. A total of 15 minutes was spent with the patient with more than 50% spent in counseling and/or coordination of care. SUBJECTIVE: "I've changed my mind. I'm going to stay alive just to aggravate my children." OBJECTIVE: Current Medications Sig/Pavan Start time Last Medication Dose Route Stop Time Status Admin Acetaminophen 650 MG Q6P PRN 07/10 0245 AC PO Acetaminophen/ 1 TAB BID 07/10 1000 DC 07/11 Hydrocodone Bitart PO 1016 Albuterol Sulfate 2 PUF Q6P PRN 07/10 0130 AC INH Atorvastatin Calcium 80 MG 1700 07/10 1700 AC 07/11 PO 1719 Calcium 600 MG DAILY 07/10 1000 AC 07/12 PO 0916 Diclofenac Sodium 1 JUANA FOUR TIMES A DAY 07/10 1000 AC 07/11 TOP 2153 Insulin Aspart 0 TIDAC/HS 07/10 1200 AC 07/12 SC 0924 Insulin Detemir 36 UNITS AT BEDTIME 07/11 2200 AC 07/11 SC 2151 Lisinopril 20 MG DAILY 07/10 1000 AC 07/12 PO 0916 [place] Carbonate 300 MG 00,2000 07/11 1300 AC 07/12 PO 0916 Metformin HCl 1,000 MG 0800,1700 07/10 0800 AC 07/12 PO 0916 Nicotine 14 MG DAILY 07/10 1000 AC 07/12 TOP 0916 Pregabalin 100 MG BID 07/10 1000 AC 07/12 PO 0919 Tiotropium [place] 1 PUF DAILY 07/10 1000 AC 07/12 INH 0917 Venlafaxine HCl 150 MG 00 07/11 0800 AC 07/12 PO 0916 Vital Signs Date Time Temp Pulse Resp B/P Pulse O2 O2 Flow FiO2 Ox Delivery Rate 07/12 1158 72 138/58 07/12 0916 82 146/73 07/12 0839 97.5 82 146/73 07/119 97.9 74 154/65 07/11 1604 72 128/46 ASSESSMENT: Patient reports feeling well, tolerating medications well, offers no complaints. Presents in an upbeat, euthymic mood. We spoke about who she might be able to invite for a family meeting. States that her daughter would not be willing to come, she would not invite her sons. She is considering who among her friends she could ask. Depression:0/10; Anxiety:0/10 (with 10 the worst.) Denies suicidal ideation, homicidal ideation, auditory hallucinations, visual hallucinations, paranoid ideation. Patient states and also believes that she will not kill herself. Speech is well articulated, goal-directed, average in rate, volume and tone. States that she had a hard time falling asleep, but was then given a cup of Sleepy Time tea, which she enjoyed and it helped her fall asleep. She says that she is looking forward to buying Sleepy Time and having a cup at bedtime when she is home. We discussed some sleep hygiene techniques which she could use at home. The patient understands the risks/benefits/side effects of the medication and is agreeable to continue taking them. PLAN: [place] level ordered for Friday07/14/2016. Continue with current management as patient is improving. Continue to provide support and encouragement.
[2016-07-12 17:08] VITALS: BP 123/65
[2016-07-12 19:44] VITALS: BP 144/71
[2016-07-13 08:07] VITALS: BP 138/68
[2016-07-13 12:27] VITALS: BP 130/65
--- NOTE | 2016-07-13 13:27 | CP SOUTH PROGRESS NOTE PSYCH ---
Psych (Inpt) Progress Note Progress Note Include the following elements, when applicable: Involvement in the active treatment of the patient with behavioral observations of the patient and the patient's response to the treatment. Review of the ongoing treatment process in the context of the treatment plan. Indication of how multi-disciplinary staff members are carrying out the treatment plan. Plans for future interventions and recommendations for revision of the treatment plan. Liaison with other physicians/providers. Progress Note: Medication list reviewed. Case discussed with nurse, who reported that the patient is doing all right. She talks to the fish but does not appear psychotic. Out in the milieu. She reported a lump on the back of her head since hanging attempt. Nurse will contact hospitalist about this. Not reporting suicidal ideation. Patient seen at 11:18 AM. She has an unsteady gait. States "I'm sorry, I'm so tired, I can't believe I'm so tired." Affect is subdued and blunted. She appears awake and alert. Feels okay except for fatigue. Mood is good. Rates sad mood and anxiety both 0/10. Denies feeling hopeless, helpless, worthless or guilty. Denies suicidal ideation, stating that she has changed her mind; "I think my kids would be happy to get rid of me, so I decided for spite I'm going to stick around." Denies homicidal ideation. Denies auditory and visual hallucinations and paranoid ideation. Describes sleep and appetite as good. Reports energy is good but tired today. Did not feel tired yesterday. Patient anticipates discharge on Friday. IMPRESSION: Slow progress. Continue present treatment plan. Patient is here after a serious suicide attempt. Patient will be having a lithium level drawn tomorrow.
--- NOTE | 2016-07-13 13:56 | PN- Diabetes ---
Assessment/Plan Assessment: 76 y/o female, hx of DM type 2, dyslipidemia and depression, was admitted for suicidal ideation. I was asked to see her for management of DM. Levemir was increased to 36 units daily. She is on Novolog coverage before meals, metformin 1000 mg twice a day and Novolog coverage at bedtime. Her FSGs were 189, 199, 177 , 189 and 251. Plan: 1. increase Levemir to 40 units daily; 2. continue metformin 1000 mg twice a day; 3. adjust novolog coverage before meals; detail see the inpatient DM order; 4. continue the current Novolog coverage at bedtime; 5. monitor FSGs. will follow. Inpatient Diabetes Orders Before Each Meal: Bolus Insulin: novolog < 80 mg/dl: no coverage 80-100 mg/dl: 5 units 101-120 mg/dl: 5 units 121-150 mg/dl: 5 units 151-200 mg/dl: 6 units 201-250 mg/dl: 7 units 251-300 mg/dl: 9 units 301-350 mg/dl: 11 units 351-400 mg/dl: 13 units > 400 mg/dl: 14 units Subjective Subjective: she feels tired today. Objective Last 24 Hrs of Vital Signs/I&O Vital Signs Date Time Temp Pulse Resp B/P Pulse O2 O2 Flow FiO2 Ox Delivery Rate 07/13 1227 80 130/65 07/13 0809 83 138/68 07/13 0807 97.6 83 138/68 07/12 1944 96.4 82 144/71 07/12 1708 99 123/65
[2016-07-13 15:56] VITALS: BP 142/66
[2016-07-13 19:51] VITALS: BP 125/77
[2016-07-14 07:42] VITALS: BP 135/57
--- NOTE | 2016-07-14 11:47 | PN- Diabetes ---
Assessment/Plan Assessment: 76 y/o female, hx of DM type 2, dyslipidemia and depression, was admitted for suicidal ideation. I was asked to see her for management of DM. Levemir was increased to 40 units daily. She is on Novolog coverage before meals, metformin 1000 mg twice a day and Novolog coverage at bedtime. Her FSGs were 212, 252 and 255. Plan: 1. increase Levemir to 48 units daily; 2. adjust Novolog coverage before meals; 3. continue the current Novolog coverage at bedtime; 4. monitor FSGs. will follow. Inpatient Diabetes Orders Before Each Meal: Bolus Insulin: Novolog < 80 mg/dl: no coverage 80-100 mg/dl: 6 units 101-120 mg/dl: 6 units 121-150 mg/dl: 6 units 151-200 mg/dl: 8 units 201-250 mg/dl: 10 units 251-300 mg/dl: 12 units 301-350 mg/dl: 14 units 351-400 mg/dl: 16 units > 400 mg/dl: 18 units Subjective Subjective: Her glucose levels are not controlled. Objective Last 24 Hrs of Vital Signs/I&O Vital Signs Date Time Temp Pulse Resp B/P Pulse O2 O2 Flow FiO2 Ox Delivery Rate 07/14 0749 96.8 77 18 135/57 07/14 0742 96.8 77 135/57 07/13 1951 98.1 83 125/77 07/13 1556 78 142/66 07/13 1227 80 130/65 Findings Pertinent Lab/Jose Results: Laboratory Tests 07/14 0553 Toxicology [place] (0.6 - 1.2 mmol/L) 0.6
[2016-07-14 12:20] VITALS: BP 137/50
--- NOTE | 2016-07-14 12:28 | CP SOUTH PROGRESS NOTE PSYCH ---
Psych (Inpt) Progress Note Progress Note Include the following elements, when applicable: Involvement in the active treatment of the patient with behavioral observations of the patient and the patient's response to the treatment. Review of the ongoing treatment process in the context of the treatment plan. Indication of how multi-disciplinary staff members are carrying out the treatment plan. Plans for future interventions and recommendations for revision of the treatment plan. Liaison with other physicians/providers. Progress Note: Case discussed with RN, who reported that patient slept well. [place] level 0.6. Patient seen at 10:03 a.m. She has a broad-based gait which she relates to left ankle brace. She is hard of hearing and reports that her hearing aides are at home. Feels ok. Affect is calm and blunted. Mood: "I'd say good." Looking forward to discharge on Friday. Sad "maybe a 3"/10. Anxiety 0/10. Denies feeling hopeless, helpless, worthless or guilty. Denies active and passive SI, HI, AH, VH and PI. Reports she slept well. Appetite: good. Energy: "a little bit sluggish" but better than yesterday. Tolerating medications well, without complaint. Nurse reports that the patient had diarrhea this morning. Will monitor and continue lithium at current dosing. IMPRESSION: Slow progress. Continue present treatment plan.
[2016-07-14 15:42] VITALS: BP 133/59
[2016-07-14 20:14] VITALS: BP 138/55
[2016-07-15 07:52] VITALS: BP 144/67
[2016-07-15 12:20] VITALS: BP 136/44
--- NOTE | 2016-07-15 13:36 | SOCIAL WORKER PROG NOTE PSYCH ---
Social Work Progress Note Progress Note Patient is anxious to be discharged tomorrow. She is willing and would like to follow-uo in [facility]. She has intake scheduled for Friday at 9:30 a. m. She states that she has no thoughts od suicide, and, in fact "want to live long just to spite them" (meaning her children. Spoke with her nieghbor who states that they keep in constant touch daily, and that she would call 911 if there were any concerns; however, she thinks it is great that she is returning home. Will also attempt to speak with Leela a nurse, and she will be aailable later.
--- NOTE | 2016-07-15 13:47 | PN- Diabetes ---
Assessment/Plan Assessment: 76 y/o female, hx of DM type 2, dyslipidemia and depression, was admitted for suicidal ideation. I was asked to see her for management of DM. Levemir was increased to 48 units daily. She is on Novolog coverage before meals, metformin 1000 mg twice a day and Novolog coverage at bedtime. Her FSGs were 277, 192, 193 , 174 and 204. As per psych team, patient is going home tomorrow. Plan: 1. increase Levemir to 50 units daily; 2. continue metformin 1000 mg twice a day; 3. continue the current Novolog coverage before meals and Novolog coverage at bedtime; 4. monitor FSGs. 5. Discharge plan for DM --- patient has Lantus and Humalog at home ---Lantus 50 units daily at bedtime; ---metformin 1000 mg twice a day; ---Onglyza 5 mg daily; ---Humalog coverage before meals-- same scale as Novolog coverage before meals; ---No Humalog coverage at bedtime; ---monitor FSGs x 4 times a day; ---f/u in office after discharge. Subjective Subjective: She feels better. Objective Last 24 Hrs of Vital Signs/I&O Vital Signs Date Time Temp Pulse Resp B/P Pulse O2 O2 Flow FiO2 Ox Delivery Rate 07/15 1220 76 136/44 07/15 0820 97.2 78 18 144/67 07/15 0752 97.2 78 144/67 07/14 2013 96.4 80 138/55 07/14 1542 73 133/59
--- NOTE | 2016-07-15 14:00 | SOCIAL WORKER PROG NOTE PSYCH ---
Social Work Progress Note Progress Note Again, no family could or wanted to be involved in family meeting. I did speak with Ashley a neighbor, and Leela a nurse who sees Ashley, and knows Kathy and her family well. They promised to call the hospital or 911 if they had any concerns about Kathy, but were both happy that she had done well, and was being discharged tomorrow.
--- NOTE | 2016-07-15 14:41 | CP SOUTH PROGRESS NOTE PSYCH ---
Psych (Inpt) Progress Note Progress Note Include the following elements, when applicable: Involvement in the active treatment of the patient with behavioral observations of the patient and the patient's response to the treatment. Review of the ongoing treatment process in the context of the treatment plan. Indication of how multi-disciplinary staff members are carrying out the treatment plan. Plans for future interventions and recommendations for revision of the treatment plan. Liaison with other physicians/providers. Progress Note: Case and treatment plan discussed in team meeting. Staff reports that the patient appears bright this morning. Smiling. Social. Did puzzles. Isolates a little. Patient seen. She was asleep in her room at 11:07 AM but got up and met with me in the office. Feels okay. Reports she last had diarrhea last night. She does not evidence any hand tremor. Mood is good. Rates sad mood and anxiety both 0/10. Denies feeling hopeless, helpless, worthless or guilty. Denies active and passive suicidal ideation. Denies homicidal ideation. Denies auditory and visual hallucinations and paranoid ideation. Reports sleep and appetite are good. Energy is good but she feels tired and she feels this might be due to boredom. Appears awake and alert. Tolerating medications well, without complaint. IMPRESSION: Slow progress. Continue present treatment plan. Anticipate discharge tomorrow.
[2016-07-15 16:33] VITALS: BP 135/53
[2016-07-15 19:51] VITALS: BP 126/51
[2016-07-16 08:13] VITALS: BP 139/76
[2016-07-16 12:09] VITALS: BP 135/48
--- NOTE | 2016-07-16 12:40 | CP SOUTH PROGRESS NOTE PSYCH ---
Psych (Inpt) Progress Note Progress Note Progress Note: I discussed this patient's progress to date, current mental status, treatment process in the context of the treatment plan, and discharge planning with staff/ team in the daily morning inpatient team meeting. I also met with the patient myself in individual session. A total of 30 minutes was spent with the patient with more than 50% spent in counseling and/or coordination of care. SUBJECTIVE: "I'm going to stay alive to spite them (her children)." OBJECTIVE: Current Medications Sig/[place] Start time Last Medication Dose Route Stop Time Status Admin Acetaminophen 650 MG Q6P PRN 07/10 0245 AC PO Albuterol Sulfate 2 PUF Q6P PRN 07/10 0130 AC INH Atorvastatin Calcium 80 MG 1700 07/10 1700 AC 07/15 PO 1713 Calcium 600 MG DAILY 07/10 1000 AC 07/16 PO 0804 Diclofenac Sodium 1 JUANA FOUR TIMES A DAY 07/10 1000 AC 07/15 TOP 1954 Insulin Aspart 0 TIDAC/HS 07/10 1200 AC 07/16 SC 1209 Insulin Detemir 50 UNITS AT BEDTIME 07/15 2200 AC 07/15 SC 2139 Insulin Detemir 48 UNITS AT BEDTIME 07/14 2200 DC 07/14 SC 2133 Lisinopril 20 MG DAILY 07/10 1000 AC 07/16 PO 0804 [place] Carbonate 300 MG 799,07/11 1300 AC 07/16 PO 0804 Metformin HCl 1,000 MG 0800,1700 07/10 0800 AC 07/16 PO 0804 Nicotine 14 MG DAILY 07/10 1000 AC 07/16 TOP 0804 Pregabalin 100 MG BID 07/10 1000 AC 07/16 PO 0805 Tiotropium [place] 1 PUF DAILY 07/10 1000 AC 07/16 INH 1118 Venlafaxine HCl 150 MG 07/11 0800 AC 07/16 PO 0804 Vital Signs Date Time Temp Pulse Resp B/P Pulse O2 O2 Flow FiO2 Ox Delivery Rate 07/16 1209 73 135/48 07/16 0813 96.4 100 139/76 07/16 0804 97.1 78 18 126/51 01/02 1951 97.1 78 126/51 /02 1633 76 135/53 ASSESSMENT: Patient reports she is doing well, offers no complaints. Tolerating medications well. States she is anxious to return home to see her cat. States that she is looking forward to attending IOP. States she will continue to seek support from her friends in her building. Depression: 0/10; Anxiety 0/10 (with 10 the worst.) Denies suicidal ideation, homicidal ideation, auditory hallucinations, visual hallucinations, paranoid ideation. Patient states and also believes that she will not kill herself. Reports that she sleeps well at night. Her appetite is good "I ate everything on the tray," Speech is well articulated, goal-directed, average in rate, volume and tone. Calm, cooperative and pleasant. Alert and oriented 3. A little hard of hearing. Euthymic mood. The patient understands the risks/benefits/side effects of the medication and is agreeable to continue taking them. PLAN: Anticipate discharge home today. Continue with current management as patient is improving. Continue to provide support and encouragement.
[2016-07-16] MEDS ORDERED: VOLTAREN100 GM TOP (12:58)
[2016-07-16] MEDS ORDERED: Lantus SC (13:16)
[2016-07-16] MEDS ORDERED: HUMALOG100 UNIT/2 (13:23)
--- NOTE | 2016-07-16 13:53 | SOCIAL WORKER PROG NOTE PSYCH ---
Social Work Progress Note Progress Note Patient to discharge the hospital today and return home. Patient denies SI/HI/AH /VH at present. Patient reports that she feels safe returning home today and is looking forward to returning home. Patient has agreed to start IOP with . She has an intake tomorrow at 9:30am and plans to attend. Patient is aware that she may have a co-pay due to her insurance and has agreed that she will pay when requested. Patient reported a desire to stop smoking and was informed about Smoking Cessation Program. Patient discharge dx: MDD, recurrent, unspecified F33.9; GAF: 40.
[2016-07-16] MEDS ORDERED: LITHIUM CARBON300 M4 PO (13:55)
[2016-07-16] MEDS ORDERED: NICOTINE PATCH1 EAC2 TOP (13:56)
[2016-07-16] MEDS ORDERED: EFFEXOR XR150 M1 PO (13:57)
--- NOTE | 2016-07-16 14:04 | DISCHARGE SUMMARY REPORT-PSYCH ---
See Addendum Visit Information Visit Dates/Diagnosis' Admission Date: 07/09/16 Discharge Date: 07/16/16 Reason for Admission: Police were called to the patient's apartment after an unsuccessful attempt to kill herself by hanging herself from her shower curtain. Patient began to feel depressed a couple of weeks ago when friends in her card group started talking about [place] plans. They are all going to be spending the holidays with family, and the patient had no one with whom to spend the holiday. Psy Discharge Primary Diag: Major Depressive d/o Psy Discharge Secondary Diag: DM; HTN; arthritis; high cholesterol Hospital Course Significant Lab Findings: Lab Glucose 324 mg/dL H 07/09/16 1556 TSH 0.172 uIU/mL L 07/09/16 1556 Total Protein 6.1 g/dL L 07/09/16 1556 [place] 0.6 mmol/L 07/14/16 0553 Course Complications: None Consultations: Patient was seen for admission history and physical by Dr. Villanueva. Please refer to his notes for additional information. Patient was seen for endocrinology consult by Dr. Charlton. Please refer to her notes for additional information. Allergies: Coded Allergies: aspirin (HX OF HEMORRAGE 12/25/15) Hospital Course/TX Response: The patient was monitored on the unit for safety, depression, and suicidal ideation. She participated in multi-model treatments on the unit. She had been taking Effexor for many years on an outpatient basis, and the dose of Effexor XR was increased to 150 mg daily for depression. She is also started on lithium for suicidal ideation protection. She tolerated these medications well, to good effect. The patient's daughter Suzanne refused to attend a family meeting. Patient stated that she had no one else whom she would invite for a family meeting. Today, the day of discharge, she reports she is doing well, offers no complaints. Tolerating medications well. States she is anxious to return home to see her cat. States that she is looking forward to attending IOP. States she will continue to seek support from her friends in her building. Depression: 0/10; Anxiety 0/10 (with 10 the worst.) Denies suicidal ideation, homicidal ideation, auditory hallucinations, visual hallucinations, paranoid ideation. Patient states and also believes that she will not kill herself. Reports that she sleeps well at night. Her appetite is good "I ate everything on the tray," Speech is well articulated, goal-directed, average in rate, volume and tone. Calm, cooperative and pleasant. Alert and oriented 3. A little hard of hearing. Euthymic mood. The patient understands the risks/benefits/side effects of the medication and is agreeable to continue taking them. Patient tolerating her medications well, without complaint. State she feels safe and ready for discharge. Discharge HBIPS - Tobacco Use Treatment Offered Post DC Medications Offered: Script Given-See Med List Post DC Tobacco Treatment Plan: Tu Tobacco Tx Pgm Program Appt Date: 07/24/16 Program Appt Time: 1600 - EtOH/Drug Use D/O Treatment Offered Post DC Medications Offered: NA-No EtOH/Drug Use D/O Post DC EtOH/SubAbuse TX Plan: NA-No EtOH/Drug Use D/O Metabolic Screening - Screen if on a Neuroleptic Medication - Metabolic screening should include: - Blood Pressure, BMI, Glucose or Hgb A1c, & a - Lipid profile from within the past 365 days. Metabolic Screening (x) Not Applicable, patient not on a neuroleptic. OR () Patient on a neuroleptic(s) . Enter below results for Glucose or Hemoglobin A1C, and lipid panel if obtained during the last 365 days. BMI: 28.000 Blood Pressure: 135/48 Laboratory Results (If applicable): Discharge Instructions General Discharge Information Discharge Medications: Discharge Medications- (Dose, route, freq, indication): HOME MEDICATION LIST START taking these NEW Home Medications: Nicotine (Nicotine Dose: On the skin, DAILY for Qty: 14 Printed Patch) 14 MG/24 HOUR 14 Milligram SMOKING CESSATION Refills: 0 PATCH.TD24 Last Taken:07/16/16 Time:0800 Venlafaxine HCl Dose: ORAL, DAILY @8 AM for Qty: 14 Printed (Effexor XR) 150 MG 150 Milligram DEPRESSION Refills: 0 CAP.ER.24H Last Taken:07/16/16 Time:0800 [place] Carbonate Dose: ORAL, 0800,1999 for MOOD Qty: 28 Printed ([place] Carbonate) 300 Milligram STABILITY Refills: 0 300 MG CAPSULE Last Taken:07/16/16 Time:0804 CONTINUE taking these Home Medications: Saxagliptin (Onglyza) 5 Dose: ORAL, DAILY for DIABETES MG TABLET 1 Tablet NOT GIVEN THIS ADMIT Lisinopril (Lisinopril) Dose: ORAL, DAILY for HEART 20 MG TABLET 1 Tablet Last Taken:07/16/16 Time:08 Atorvastatin Calcium Dose: ORAL, DAILY for (Atorvastatin Calcium) Unknown Dose CHOLESTEROL (Unknown Strength) Last Taken:07/15/16 TABLET Time:1712 Insulin-Lantus (Lantus) Dose: Inject into fatty 100 UNIT/ML VIAL 50 Units tissue, Every Morning for DM PER PT MED LIST Calcium Carbonate/ Dose: ORAL, DAILY for Vitamin D3 (Caltrate 600 Unknown Dose SUPPLEMENT + D Tablet) (Unknown Last Taken:07/16/16 Strength) TABLET Time:803 Albuterol Sulfate Dose: Inhale through mouth, 4 (Proair Hfa) 90 MCG 2 Puff TIMES A DAY for HFA.AER.AD RESPIRATORY Last Taken:NOT TAKEN DURING HOSPITALIZATION Tiotropium [place] Dose: Inhale through mouth, (Spiriva) 18 MCG 1 Capsule DAILY for RESPIRATORY CAP.W.DEV Last Taken:07/16/16 Time:111 Pregabalin (Lyrica) 100 Dose: ORAL, TWICE DAILY for MG CAPSULE 1 Capsule UNKNOWN Last Taken:07/16/16 Time:08 Metformin HCl Dose: ORAL, TWICE DAILY for (Glucophage) 1,000 MG 1,000 Milligram DIABETES TABLET Last Taken:07/16/16 Time:0800 Diclofenac Sodium Dose: On the skin, 4 TIMES A (Voltaren) 1 % 1 Gram DAY for BONE STRENGTH GEL..GRAM. apply to affected area(s) Last Taken:07/15/16 Time:1953 [Lantus] Dose: Inject into fatty 50 Units tissue, AT BEDTIME for DIABETES Last Taken:07/15/16 Time:2138 Insulin Lispro (Humalog) Dose: , 1/2 HOUR BEFORE MEALS 100 UNIT/ML VIAL for DIABETES Before each meal: < 80: no coverage 80-150: 6 units 151-200: 8 units 201-250: 10 units 251-300: 12 units 301-350: 14 units 351-400: 16 units > 400: 18 units Last Taken:07/16/16 12 UNITS Time:1209 STOP taking these DISCONTINUED Home Medications: Venlafaxine HCl (Venlafaxine Dose: ORAL, TWICE DAILY for MENTAL HCl) 37.5 MG TABLET 1 Tablet HEALTH Reason Stopped: Changed Dose Hydrocodone/Acetaminophen Dose: ORAL, TWICE DAILY for PAIN (Hydrocodon-Acetaminophen 5- 1 Tablet Reason Stopped: Med no longer 325) 1 EACH TABLET needed Diclofenac Sodium (Voltaren) Dose: On the skin, 4 TIMES A DAY for 100 GM GEL..GRAM. 1 Gram AFFECTED AREA apply to affected area(s) Reason Stopped: Per Doctor Decision Insulin-Lantus (Lantus) 100 Dose: Inject into fatty tissue, Every UNIT/ML VIAL 65 Units night for DM Reason Stopped: Changed Dose Insulin Lispro (Humalog Dose: Inject into fatty tissue, THREE Kwikpen U-100) 100 UNIT/ML Units TIMES DAILY for DM INSULN.PEN Reason Stopped: Changed Dose Your Preferred Pharmacy [facility] [address] [place], [place] [address] [address] [place] [address] [phone] Multiple Neuroleptics: (x) Not Applicable OR Document below three failed attempts at monotherapy, or a plan to taper to monotherapy, or augmentation of Clozapine. () Patient's Diet: Diabetic Patient's Activity: No restrictions DC Disposition: Patient is returning to her apartment in independent long-term housing in [place]. Recommendations: Follow-up at [facility]. Take medications as prescribed. Patient was offered an appointment with patient transporter Dr. Charlton, who saw her for diabetes management during her stay here in the hospital. Patient declined to see Dr. Charlton, and stated that she would follow-up with her primary care doctor, Dr. Son, in his new office in [place], [place]. Referred To: [facility]. [address] [place] [address]. . Intake appointment on 07/17/2016 at 9:30 in the morning. Primary care: Tomás Son M.D. [address] [facility] [address] [place] [address] Copies To: Dr. Son; Intensive Outpt Psychiatry
== END 2016-07-16 14:30 | DRG 881 ==
LOC: ERH 14:47 → CP SOUTH 22:54 → ERHI 22:55 → CP SOUTH 07-10 00:24
PROVIDERS: Physician Assistant; ADMIT Psychiatry & Neurology Psychiatry
DX: F32.9 Major depressive disorder, single episode, unspecified (principal); E11.9 Type 2 diabetes mellitus without complications; I10 Essential (primary) hypertension; M19.90 Unspecified osteoarthritis, unspecified site; E78.00 Pure hypercholesterolemia, unspecified
CPT/HCPCS: 36415; 93005; 93010; G0463; G0479; G0480; J1815; J3490